=== PATIENT | male | born 1990 | race Caucasian/White ===

== ENCOUNTER 2017-12-30 04:02 | Emergency (ER) | payer OTHER ==
[~2017-12-30] VITALS: Ht 185.4 cm; Wt 71.2 kg
[2017-12-30 04:41] VITALS: Ht 185.4 cm; Wt 71.2 kg
[2017-12-30 05:55] VITALS: BP 139/89
== END 2017-12-30 05:40 | disposition home or self-care (01) ==
LOC: ED 04:02
DX: S01.81XA Laceration without foreign body of other part of head, initial encounter (principal); Y04.2XXA Assault by strike against or bumped into by another person, initial encounter; Y93.89 Activity, other specified; Y99.8 Other external cause status; Y92.89 Other specified places as the place of occurrence of the external cause
CPT/HCPCS: J2001

== ENCOUNTER 2018-06-06 14:02 | Emergency (ER) | payer SELFPAY ==
[~2018-06-06] VITALS: Ht 185.4 cm; Wt 67.1 kg
[2018-06-06 14:09] VITALS: Ht 185.4 cm; Wt 67.1 kg
[2018-06-06 16:04] VITALS: BP 136/77
== END 2018-06-06 16:04 | disposition home or self-care (01) ==
LOC: ED 14:02
DX: G51.0 Bell's palsy (principal); H57.8 Other specified disorders of eye and adnexa; F17.210 Nicotine dependence, cigarettes, uncomplicated

== ENCOUNTER 2018-08-19 03:08 | Emergency (ER) | payer SELFPAY ==
[~2018-08-19] VITALS: Ht 185.4 cm; Wt 63.0 kg
[2018-08-19 03:22] VITALS: Ht 185.4 cm; Wt 63.0 kg
[2018-08-19 04:27] VITALS: BP 133/85
== END 2018-08-19 04:27 | disposition home or self-care (01) ==
LOC: ED 03:08
DX: L03.113 Cellulitis of right upper limb (principal); F17.210 Nicotine dependence, cigarettes, uncomplicated
CPT/HCPCS: 99406; A4570